=== PATIENT | male | born 1970 | race Caucasian/White ===

== ENCOUNTER 2024-12-29 13:58 | Emergency (ER) | payer MEDICAID, MEDICARE ==
[~2024-12-29] VITALS: Ht 175.3 cm; Wt 115.5 kg
[~2024-12-29 13:58] MED LIST: LIDO-52 TOP
[2024-12-29 14:06] VITALS: BP 148/81; PULSE 85; RESP 16; TEMP 98.3; O2SAT 97
[2024-12-29] MEDS ORDERED: HYDR28CR14 TOP (15:15)
--- NOTE | 2024-12-29 15:15 | Physician Documentation ---
History of Present Illness ~ Chief Complaint: Rash Stated Complaint: RASH Time Seen by MD: 14:48 OK to notify your PCP?: Yes Source: patient Mode of Arrival: POV Exam Limitations: no limitations HPI 54-year-old disabled male presents with his caregiver for rash which started on his back and has spread to bilateral flanks and abdomen. He reports that the rash is itchy and painful when he itches it. [place] in a [place]. Staff noticed this rash this morning. He states that he has purchased with his own money a new soap. He denies any other symptoms. Medication Reconciliation Allergies: Coded Allergies: Penicillins (Verified Allergy, Unknown, UNKNOWN, 07/23/24) Scheduled Lidocaine (Lidoderm), 1 PATCH TOP DAILY Review of Systems All Other Systems at this time: Reviewed and Negative Physical Exam Vital Signs: RN Vital Signs have been reviewed: Yes, Temperature: 98.3, Source: Temporal, Heart Rate: 85, Respiratory Rate: 16, BP: 148/81, Pulse Oximetry: 97, Weight: 115.500 Oxygen Flow Rate: 0 Pulse Oximetry Reflects: adequate oxygenation Physical Exam General: Alert, no distress. HEENT: No injection, moist mucous membranes. Neck: Full range of motion. Respiratory: No respiratory distress, equal chest rise and fall. Chest: No accessory muscle use. Cardiovascular: Regular rate and rhythm. Gastrointestinal: Nondistended. Extremities: Normal range of motion, no deformity. Neurologic: Oriented x4. Psychiatric: Normal mood and affect. Skin: Diffuse maculopapular rash along left back, bilateral flanks, left abdomen, and left arm, nontender to palpation. Progress Results/Orders Reviewed/noted all lab results: Yes Results/Orders Vital Signs 12/29/24 14:06 Temp 98.3 Pulse 85 Resp 16 B/P (MAP) 148/81 Pulse Ox 97 O2 Flow Rate 0 Medical Decision Making Additional info obtained from: design leader Findings 54-year-old male with diffuse rash after using a new soap which is itchy and painful. He has not taken any Tylenol, ibuprofen or Benadryl for his symptoms. 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 Differential Dx:Considerations: Include: Abscess, Candidiasis, Herpes zoster, Impetigo, Molluscum contagiosum, Pityriasis rosea, Psoriaisis, Scabies, Scarlet fever, Viral exanthema Departure Disposition: 01 HOME / SELF CARE / HOMELESS Impression: Primary Impression: Allergic contact dermatitis Condition: Stable Discharge Instructions: Contact Dermatitis Additional Instructions: Please take Benadryl once daily to help with the itching. You can use the prescribed cream to any affected spots to help decrease itching as well. If painful you can take Tylenol and/or ibuprofen. Follow up with your primary care provider or investigator narcotics within the next week if this does not resolve. Return back here for any new or worsening symptoms. Please refrain from using the new soap that you have purchased as this may be what is causing this rash. Referrals: NO PRIMARY CARE PROVIDER (PCP) Prescriptions Hydrocortisone (hydrocortisone 1% cream) 1 % Cream..g. 1 APPLIC TOP Q12H for 7 Days, #30 GM 0 Refills apply to affected area(s) Prov: JILLIAN AGUILAR 12/29/24 Education Educated: Patient, Other (Caregiver) Educated regarding: diagnosis, treatment, prognosis, need for follow up Additional Comment Medical Screen Exam This patient recieved a medical screening examination. After reviewing the individual's medical complaints with presenting symptoms and performing an appropriate physical examination, it was determined that no immediate life- threatening emergency medical condition is present. This individual is also not a women having contractions. Signature Scribe Signature: . Attestation: Scribed for Jillian Aguilar by Jillian Brewer NP . 12/29/24 15:13 Parts of this note were created using [employer] voice recognition software pro gram. While efforts were made to correct any mistakes made by this voice recognition software program, nonsensical phrases may remain in this note. In addition, there may be errors and syntax, grammar, content and spelling. JILLIAN AGUILAR Dec 29, 2024 15:15
== END 2024-12-29 15:27 | disposition home or self-care (01) ==
LOC: ER 13:59
DX: L23.9 Allergic contact dermatitis, unspecified cause (principal); Z88.0 Allergy status to penicillin
CPT/HCPCS: 99282; Q0163